=== PATIENT | male | born 1985 ===

== ENCOUNTER 2017-04-14 16:49 | Emergency (ER) | payer OTHER ==
--- NOTE | 2017-04-14 16:55 | EDM.PDOC ---
ED HPI GENERAL MEDICAL PROBLEM - General Chief Complaint: Bite:Animal, Insect Stated Complaint: PUPPY BITE [phone] Time Seen by Provider: 04/14/17 16:54 Source of Information: Reports: Patient, RN, RN Notes Reviewed History Limitations: Reports: No Limitations - History of Present Illness INITIAL COMMENTS - FREE TEXT/NARRATIVE: Patient playing with his new puppy and it bit his left hand. He has 2 small puncture wounds, one on the left thenar eminence and one at distal 2nd finger. Three small abrasions at left wrist, left thumb and 2nd finger. Tetanus vaccine more then 10 years ago. Denies any other injury. Onset: Today Quality: Reports: Ache Severity: Mild Improves with: Reports: None Worsens with: Reports: None Associated Symptoms: Reports: No Other Symptoms Left Hand Pain Score (Numeric/FACES): 5 - Related Data Allergies Allergy/AdvReac Type Severity Reaction Status Date / Time No Known Allergies Allergy Verified 04/14/17 16:58 Home Meds: Home Meds . [No Known Home Meds] 04/14/17 [History] ED ROS GENERAL - Review of Systems Review Of Systems: ROS reveals no pertinent complaints other than HPI. ED EXAM, ANIMAL BITE - Physical Exam Exam: See Below Exam Limited By: No Limitations General Appearance: Alert, WD/WN, No Apparent Distress Respiratory/Chest: No Respiratory Distress Cardiovascular: Normal Peripheral Pulses (at bilateral radial pulses.) Neurological: Alert, Oriented, CN II-XII Intact, Normal Cognition, Normal Gait, Normal Reflexes, No Motor/Sensory Deficits Psychiatric: Normal Affect, Normal Mood Lymphadenopathy: Bilateral: No Adenopathy Course - Vital Signs Last Recorded V/S: Last Vital Signs Temp 37.1 C 04/14/17 16:55 Pulse 100 04/14/17 16:55 Resp 18 04/14/17 16:55 BP 137/84 04/14/17 16:55 Pulse Ox 97 04/14/17 16:55 - Orders/Labs/Meds Meds: Medications Discontinued Medications Generic Name Dose Route Start Last Admin Trade Name Freq PRN Reason Stop Dose Admin Amoxicillin/Clavulanate Potassium 1 tab 04/14/17 17:12 04/14/17 17:17 Augmentin 875 Mg/125 Mg PO 04/14/17 17:13 1 tab ONETIME ONE Administration Bacitracin 1 dose 04/14/17 17:11 04/14/17 17:17 Bacitracin Oint 1 Gm TOP 04/14/17 17:12 1 dose ONETIME ONE Administration Departure - Departure Time of Disposition: 17:13 Disposition: Home, Self-Care 01 Condition: good Clinical Impression: Dog bite of left hand Qualifiers: Encounter type: initial encounter Qualified Code(s): S61.452A - Open bite of left hand, initial encounter Puncture wound of hand, left Qualifiers: Encounter type: initial encounter Foreign body presence: without foreign body Qualified Code(s): S61.432A - Puncture wound without foreign body of left hand, initial encounter - Discharge Information Instructions: Animal Bite, [id number] Referrals: PCP,None [Primary Care Provider] - Forms: ED Department Discharge Additional Instructions: Augmentin 875mg. Bactroban ointment 2%. Follow up in clinic in 5 to 7 days for recheck. Return to ER if any signs of infection develop.
[2017-04-14 16:56] VITALS: BP 137/84
[2017-04-14] MEDS ORDERED: Bacitracin Oint 1 GM U/D Packet TOP ONE (17:11)
[2017-04-14] MEDS ORDERED: Amoxicillin/Clavulanate K 875-125 MG Tab PO ONE (17:12)
== END 2017-04-14 17:24 | disposition home or self-care (01) ==
LOC: DL.ED 16:49
DX: S61.432A Puncture wound without foreign body of left hand, initial encounter (principal); S61.452A Open bite of left hand, initial encounter; W54.0XXA Bitten by dog, initial encounter
CPT/HCPCS: 99283; A9270

== ENCOUNTER 2019-08-11 10:08 | Emergency (ER) | payer MEDICAID, OTHER ==
[2019-08-11] MEDS ORDERED: Dexamethasone 4 MG/ML SDV IVPUSH ONE (10:14)
[2019-08-11] MEDS ORDERED: Sodium Chloride 0.9% 10 ML Syringe FLUSH PRN (10:14)
[2019-08-11] MEDS ORDERED: HYDROmorphone 1 MG/ML Syringe IVPUSH ONE ×2 (10:15→11:49)
[2019-08-11] MEDS ORDERED: Iopamidol 612 MG/ML 75 ML Bottle IVPUSH ONE (10:15)
[2019-08-11] MEDS ORDERED: Sodium Chloride 0.9% 1,000 ML IV ONE (10:15)
[2019-08-11] MEDS ORDERED: Ondansetron 4 MG/2 ML SDV IV ONE (10:15)
[2019-08-11 10:21] VITALS: BP 135/66; PULSE 90
[2019-08-11] MEDS ORDERED: Azithromycin 500 MG in Sodium Chloride 0.9% 250 ML IV ONE (10:39)
[2019-08-11 10:47] LABS: ANION GAP 11.8; CHLORIDE,CL 98 mmol/L (101-111); SODIUM,NA 134 mmol/L (135-145)
--- NOTE | 2019-08-11 12:56 | EDM.PDOC ---
Scribed by Macy Calix 08/11/19 1056 for Erin Ortega MD ED HPI GENERAL MEDICAL PROBLEM - General Chief Complaint: ENT Problem Stated Complaint: AMBULANCE Time Seen by Provider: 08/11/19 10:07 Source of Information: Reports: Patient, EMS, EMS Notes Reviewed, RN, RN Notes Reviewed History Limitations: Reports: No Limitations - History of Present Illness INITIAL COMMENTS - FREE TEXT/NARRATIVE: Patient presents to ER by [facility]. Patient complains of sore throat which started a few days ago. Admits to chills. Unsure if he has had a fever. Today awoke with large lymph node and swelling at the right neck, muffled voice, or increased pain. Denies difficulty breathing. Denies swelling of the face, lips or tongue. Feels his throat is swollen. Onset: Gradual Duration: Getting Worse Location: Reports: Other (tonsil and lymph node) Quality: Reports: Ache Severity: Severe Improves with: Reports: None Worsens with: Reports: None Associated Symptoms: Reports: No Other Symptoms Right Throat Pain Score (Numeric/FACES): 9 - Related Data Allergies Allergy/AdvReac Type Severity Reaction Status Date / Time No Known Allergies Allergy Verified 08/11/19 10:16 Home Meds: Home Meds . [No Known Home Meds] 08/11/19 [History] Past Medical History HEENT History: Reports: None Cardiovascular History: Reports: None Respiratory History: Reports: None Gastrointestinal History: Reports: None Genitourinary History: Reports: None Musculoskeletal History: Reports: None Neurological History: Reports: None Psychiatric History: Reports: None Endocrine/Metabolic History: Reports: None Hematologic History: Reports: None Immunologic History: Reports: None Oncologic (Cancer) History: Reports: None Dermatologic History: Reports: None - Infectious Disease History Infectious Disease History: Reports: Chicken Pox - Past Surgical History Head Surgeries/Procedures: Reports: None Social & Family History - Family History Family Medical History: Noncontributory - Caffeine Use Caffeine Use: Reports: None - Living Situation & Occupation Living situation: Reports: with Family ED ROS ENT - Review of Systems Review Of Systems: ROS reveals no pertinent complaints other than HPI. ED EXAM, ENT - Physical Exam Exam: See Below Exam Limited By: No Limitations General Appearance: Alert, WD/WN, No Apparent Distress Eye Exam: Bilateral Eye: Normal Inspection Ears: Normal External Exam, Normal Canal, Hearing Grossly Normal, Normal TMs Nose: Normal Inspection, Normal Mucousa, No Blood Mouth/Throat: Normal Gums, Normal Lips, Hoarse Voice, Peritonsillar Mass (Rt), Pharyngeal Erythema, Tonsillar Erythema, Tonsillar Swelling (Rt, touches uvula) Head: Atraumatic, Normocephalic Neck: Supple, Full Range of Motion, Lymphadenopathy (L), Lymphadenopathy (R) Respiratory/Chest: No Respiratory Distress, Lungs Clear, Normal Breath Sounds, No Accessory Muscle Use, Chest Non-Tender Cardiovascular: Regular Rate, Rhythm, Tachycardia GI/Abdominal: Normal Bowel Sounds, Soft, Non-Tender, No Organomegaly, No Distention, No Abnormal Bruit, No Mass (Male) Exam: Deferred Rectal (Males) Exam: Deferred Back: Normal Inspection, Full Range of Motion Extremities: Normal Inspection, Normal Range of Motion, Non-Tender, No Pedal Edema, Normal Capillary Refill Neurological: Alert, Oriented, CN II-XII Intact, Normal Cognition, Normal Gait, Normal Reflexes, No Motor/Sensory Deficits Psychiatric: Normal Affect, Normal Mood Skin: Warm, Dry, Intact, Normal Color, No Rash Course - Vital Signs Last Recorded V/S: Last Vital Signs Temp 99.3 F 08/11/19 10:20 Pulse 90 08/11/19 10:20 Resp 16 08/11/19 10:20 BP 135/66 08/11/19 10:20 Pulse Ox 100 08/11/19 10:20 - Orders/Labs/Meds Orders: Active Orders 24 hr Category Date Time Status Peripheral IV Care [RC] . DIRECTED Care 08/11/19 10:14 Active Soft Tissue Neck w Cont [CT] Stat Exams 08/11/19 10:16 Taken Sodium Chloride 0.9% [Saline Flush] Med 08/11/19 10:14 Active 10 ml FLUSH ASDIRECTED PRN Peripheral IV Insertion Adult [OM.PC] Stat Oth 08/11/19 10:14 Ordered Medication Orders Sodium Chloride (Saline Flush) 10 ml FLUSH ASDIRECTED PRN PRN Reason: Keep Vein Open Labs: Laboratory Tests 08/11/19 08/11/19 08/11/19 Range/Units 10:20 10:20 10:20 WBC 32.1 H* (5.0-10.0) 10^3/uL RBC 4.97 (4.6-6.2) 10^6/uL Hgb 16.1 D (14.0-18.0) g/dL Hct 46.8 (40.0-54.0) % MCV 94.2 (80-100) fL MCH 32.4 (27.0-34.0) pg MCHC 34.4 (33.0-35.0) g/dL Plt Count 314 (150-450) 10^3/uL Neut % (Auto) 82.6 H (42.2-75.2) % Lymph % (Auto) 4.9 L (20.5-50.1) % [place] % (Auto) 12.4 H (2-8) % Eos % (Auto) 0.0 L (1.0-3.0) % Baso % (Auto) 0.1 (0.0-1.0) % Add Manual Diff Yes Neutrophils % (Manual) 87 H (42-75) % Band Neutrophils % 2 % Lymphocytes % (Manual) 5 L (20-50) % Monocytes % (Manual) 6 (2-8) % Toxic Granulation 2+ moderate Sodium 134 L (135-145) mmol/L Potassium 3.8 (3.6-5.0) mmol/L Chloride 98 L (101-111) mmol/L Carbon Dioxide 28.0 (21.0-31.0) mmol/L Anion Gap 11.8 BUN 9 (7-18) mg/dL Creatinine 0.9 (0.6-1.3) mg/dL Est Cr Clr Drug Dosing 120.54 mL/min Estimated GFR (MDRD) > 60 BUN/Creatinine Ratio 10.00 Glucose 121 H (74-105) mg/dL Calcium 8.8 (8.4-10.2) mg/dl Total Bilirubin 0.7 (0.2-1.0) mg/dL AST 21 (10-42) IU/L ALT 24 (10-60) IU/L Alkaline Phosphatase 64 (42-121) IU/L C-Reactive Protein 15.8 H (0.0-1.3) mg/dL Total Protein 7.5 (6.7-8.2) g/dl Albumin 3.9 (3.2-5.5) g/dl Globulin 3.6 Albumin/Globulin Ratio 1.08 Rapid strep: Positive. Meds: Medications Generic Name Dose Route Start Last Admin Trade Name Emily PRN Reason Stop Dose Admin Sodium Chloride 10 ml 08/11/19 10:14 Saline Flush FLUSH ASDIRECTED PRN Keep Vein Open Discontinued Medications Generic Name Dose Route Start Last Admin Trade Name Emily PRN Reason Stop Dose Admin Dexamethasone 20 mg 08/11/19 10:14 08/11/19 10:32 Dexamethasone IVPUSH 08/11/19 10:15 20 mg ONETIME ONE Administration Hydromorphone HCl 1 mg 08/11/19 10:15 08/11/19 10:31 Dilaudid IVPUSH 08/11/19 10:16 1 mg ONETIME ONE Administration Hydromorphone HCl 1 mg 08/11/19 11:49 08/11/19 11:59 Dilaudid IVPUSH 08/11/19 11:50 1 mg ONETIME ONE Administration Ceftriaxone Sodium 2,000 mg/ 100 mls @ 200 mls/hr 08/11/19 10:14 08/11/19 11: 47 Sodium Chloride IV 08/11/19 10:43 Infused ONETIME ONE Infusion Sodium Chloride 1,000 mls @ 999 mls/hr 08/11/19 10:15 08/11/19 10:31 Normal Saline IV 08/11/19 11:15 999 mls/hr .BOLUS ONE Administration Azithromycin 500 mg/ Sodium 250 mls @ 250 mls/hr 08/11/19 10:39 08/11/19 11: 47 Chloride IV 08/11/19 11:38 250 mls/hr ONETIME ONE Administration Iopamidol 75 ml 08/11/19 10:15 08/11/19 10:46 Isovue-300 (61%) IVPUSH 08/11/19 10:16 75 ml ONETIME ONE Administration Ondansetron HCl 4 mg 08/11/19 10:15 08/11/19 10:31 Zofran IV 08/11/19 10:16 4 mg ONETIME ONE Administration - Radiology Interpretation Free Text/Narrative:: [facility] [place] [facility] Final Radiology Report with Addendum Call: [phone] assistance Online chat: [email or web address] Name: ILEANA STEPHEN Age: 34Years M Date: 08/11/2019 SSN: -- : [id number] Study: CT NECK SOFT TISSUE W Requesting Physician: ERIN ORTEGA Images: [phone] Addl Studies: Provided Clinical History: Contrast: With Contrast Medium: Isovue Contrast Amount: 75 mL Contrast Method: LAC Page 1 of 2 Addendum created by Jim Bradley MD on 08/11/2019 11:43 AM Central Time ([place] & [place]) This report contains findings that may be critical to patient care. The findings were verbally communicated via telephone conference with ERIN ORTEGA at 08/11/2019 11:41 AM CDT. The findings were acknowledged and understood. "4. Mild right sided retroperitoneal thickening is appreciated" is incorrect. Should be RETROPHARYNGEAL. Initial Report created on 08/11/2019 11:35 AM Central Time ([place] & [place]) PROCEDURE INFORMATION: Exam: CT Neck With Contrast Exam date and time: 08/11/2019 10:44 AM Clinical history: 34 years old, male; Abscess, tonsil; Patient HX: PT peritonsilar abscess eval retropharyngeal space TECHNIQUE: Imaging protocol: Computed tomography images of the neck with intravenous contrast. Radiation optimization: All CT scans at this facility use at least one of these dose optimization techniques: automated exposure control; mA and/or kV adjustment per patient size (includes targeted exams where dose is matched to clinical indication); or iterative reconstruction. Contrast material: ISOVUE; Contrast volume: 75 ml; Contrast route: LAC; COMPARISON: No relevant prior studies available. FINDINGS: Brain: Mass effect is seen on the airway. Sinuses: Right maxillary sinus retention cyst versus polyp. ILEANA STEPHEN | Final Radiology Report CONFIDENTIALITY STATEMENT This report is intended only for use by the referring physician, and only in accordance with law. If you received this in error, call [phone]. Page 2 of 2 Nasopharynx: Unremarkable. Oropharynx: Large area of decreased attenuation within the right lingual and palatine tonsillar tissue consistent with phlegmon measuring 3.6 x 2.9 cm. Hypopharynx: Unremarkable Larynx: Unremarkable. Normal epiglottis. Retropharyngeal space: Unremarkable. Submandibular/Parotid glands: Normal. Glands are normal in size. Thyroid: Normal. No enlarged or calcified nodules. Lymph nodes: Bilateral cervical lymphadenopathy. Trachea: Visualized trachea is unremarkable. Lungs: Unremarkable as visualized. Bones/joints: Unremarkable. No acute fracture. Soft tissues: Several small low-attenuation foci with ring enhancement are seen within the phlegmon consistent with abscess development. Mild right sided retroperitoneal thickening is appreciated. IMPRESSION: 1. Large area of decreased attenuation within the right lingual and palatine tonsillar tissue consistent with phlegmon measuring 3.6 x 2.9 cm. 2. Mass effect is seen on the airway. 3. Several small low-attenuation foci with ring enhancement are seen within the phlegmon consistent with abscess development. 4. Mild right sided retroperitoneal thickening is appreciated. Thank you for allowing us to participate in the care of your patient. Dictated and Authenticated by: Jim Bradley MD 08/11/2019 11:35 AM Central Time ([place] & [place]) - Re-Assessments/Exams Free Text/Narrative Re-Assessment/Exam: 08/11/19 12:51 Pt feels partially improved. No retropharyngeal abscess per phone report by radiologist. Strep positive Rt peritonsillar abscess. Pt is stable with no airway compromise. He agrees to f/u in clinic tomorrow for recheck and referral to ENT as he will need to be evaluated for tonsillectomy once the abscess is resolved. Departure - Departure Time of Disposition: 12:54 Disposition: Home, Self-Care 01 Condition: Fair Clinical Impression: Peritonsillar abscess, Strep pharyngitis - Discharge Information *PRESCRIPTION DRUG MONITORING PROGRAM REVIEWED*: No *COPY OF PRESCRIPTION DRUG MONITORING REPORT IN PATIENT LOVELY: No Instructions: Peritonsillar Abscess, [id number], Strep Throat, [id number] Forms: ED Department Discharge Additional Instructions: Rx: Zithromax 500mg Rx: Decadron 4mg Use over the counter [facility] [place] for sore throat. Follow directions on bottle for dosing and precautions. Follow up in clinic tomorrow for recheck and referral to an Ear/Nose/Throat Specialist. Return to ER if worse at any time. - My Orders Last 24 Hours: My Active Orders 08/11/19 10:14 Peripheral IV Care [RC] . DIRECTED Sodium Chloride 0.9% [Saline Flush] 10 ml FLUSH ASDIRECTED PRN Peripheral IV Insertion Adult [OM.PC] Stat 08/11/19 10:16 Soft Tissue Neck w Cont [CT] Stat - Assessment/Plan Last 24 Hours: My Active Orders 08/11/19 10:14 Peripheral IV Care [RC] . DIRECTED Sodium Chloride 0.9% [Saline Flush] 10 ml FLUSH ASDIRECTED PRN Peripheral IV Insertion Adult [OM.PC] Stat 08/11/19 10:16 Soft Tissue Neck w Cont [CT] Stat I have read and agree with the documentation that has been completed regarding this visit. By signing this record, I attest that the documentation was completed in my physical presence and is an accurate record of the encounter.
== END 2019-08-11 13:24 | disposition home or self-care (01) ==
LOC: DL.ED 10:08
DX: J36 Peritonsillar abscess (principal)
CPT/HCPCS: 36415; 70491; 80053; 85025; 86140; 87430; 96365; 96367; 96375; 96376; 99284; J0456; J0696; J1100; J1170; J2405; J7030; J7050; Q9967

== ENCOUNTER 2022-08-18 15:11 | Emergency (ER) | payer MEDICAID, OTHER ==
[2022-08-18] MEDS ORDERED: Iopamidol 612 MG/ML 100 ML Bottle IV ONE (16:00)
[2022-08-18] MEDS ORDERED: Ondansetron 4 MG/2 ML SDV IVPUSH ONE (16:00)
[2022-08-18] MEDS ORDERED: HYDROmorphone 1 MG/ML Syringe IVPUSH ONE ×3 (16:00→18:28)
[2022-08-18] MEDS ORDERED: Sodium Chloride 0.9% 1,000 ML IV ONE (16:00)
[2022-08-18] MEDS ORDERED: Piperacillin/Tazobactam 4.5 GM in Sodium Chloride 0.9% 100 ML IV ONE (17:13)
[2022-09-12 14:39] LABS: CHLORIDE,CL 103 mmol/L (98-107); SODIUM,NA 141 mmol/L (136-145)
[2022-09-12 14:40] LABS: ANION GAP 13.2 mEq/L (7-13); ESTIMATED GFR 101 mL/min (>=60)
[2022-09-12 14:43] LABS: AMPHETAMINES,URINE NEGATIVE (NEGATIVE); BARBITURATES,URINE NEGATIVE (NEGATIVE); BENZODIAZEPINE,URINE NEGATIVE (NEGATIVE); MDMA (ECSTASY), URINE NEGATIVE (NEGATIVE); METHADONE,URINE NEGATIVE (NEGATIVE); METHAMPHETAMINES,URINE NEGATIVE (NEGATIVE); OPIATES,URINE POSITIVE (NEGATIVE); OXYCODONE,URINE NEGATIVE (NEGATIVE); PHENCYCLIDINE,URINE NEGATIVE (NEGATIVE); TCA,URINE NEGATIVE (NEGATIVE)
== END 2022-08-19 19:45 ==
LOC: DL.ED 15:11
DX: K81.0 Acute cholecystitis (principal); K80.70 Calculus of gallbladder and bile duct without cholecystitis without obstruction
CPT/HCPCS: 36415; 74177; 80053; 80305; 80307; 81001; 82150; 83605; 83690; 85025; 96361; 96365; 96375; 96376; 99284; J1170; J2405; J2543; J7030; Q9967